=== PATIENT | male | born 1945 | race Two or more races ===

== ENCOUNTER 2020-10-14 07:34 | Inpatient (IN) | payer OTHER ==
[~2020-10-14] VITALS: Ht 172.7 cm; Wt 99.8 kg
[~2020-10-14 07:34] MED LIST: INSLANTI
[2020-10-14] MEDS ORDERED: SODIUM CHLORIDE 0.9% 1,000 ML IV ONE (08:15)
[2020-10-14 08:18] LABS: Basophils # (auto) 0.1 10 ^3/uL (0-0.2); Basophils % (auto) 0.6 % (0.0-2.0); Eosinophils # (auto) 0.4 10 ^3/uL (0-0.8); Eosinophils % (auto) 2.9 % (0.0-7.0); Hematocrit 29.7 % (41.0-53.0); Hemoglobin 9.7 g/dL (13.5-17.5); Lymphocytes # (auto) 1.6 10 ^3/uL (0.4-5.4); Lymphocytes % (auto) 12.5 % (10.0-50.0); Mean Corpuscular Hemoglobin 27.6 pg (28.0-32.0); Mean Corpuscular Hgb Conc. 32.6 g/dL (32.0-36.0); Mean Corpuscular Volume 84.9 fL (80.0-100.0); Monocytes # (auto) 0.8 10 ^3/uL (0-1.3); Monocytes % (auto) 6.5 % (0.0-12.0); Neutrophils # (auto) 9.6 10 ^3/uL (1.6-8.6); Neutrophils % (auto) 77.5 % (37.0-80.0); Red Cell Distribution Width 14.3 % (11.8-14.3); White Blood Cell 12.4 10^3/uL (4.4-10.8)
[2020-10-14 08:35] LABS: Albumin 2.8 g/dL (3.4-5.0); Calcium 7.6 mg/dL (8.5-10.1); Potassium 3.6 mmol/L (3.5-5.1)
[2020-10-14 08:39] LABS: BUN/Creatinine Ratio 13.7; Bilirubin, Total 0.4 mg/dL (0.2-1.0); Total Protein 6.6 g/dL (6.4-8.2)
[2020-10-14] MEDS ORDERED: ONDANSETRON HCL 4 MG/2 ML VIAL IV ONE (09:00)
[2020-10-14] MEDS ORDERED: NOREPINEPHRINE 8 MG/250ML KIT 250 ML IV SCH (09:00)
[2020-10-14] MEDS ORDERED: NOREPINEPHRINE 8 MG/250ML KIT 250 ML IV ONE ×2 (09:02→14:55)
[2020-10-14] MEDS ORDERED: SUCCINYLCHOLINE CHLORIDE 20 MG/ML 10ML VIAL IV ONE (11:00)
[2020-10-14] MEDS ORDERED: ETOMIDATE (2MG/ML) 20ML VIAL IV ONE (11:00)
[2020-10-14] MEDS ORDERED: ENOXAPARIN SOD 100 MG/1 ML SYRINGE SC ONE (11:00)
[2020-10-14] MEDS ORDERED: PROPOFOL 100 ML IV SCH (11:00)
[2020-10-14] MEDS ORDERED: PROPOFOL 100 ML IV ONE (11:06)
[2020-10-14] MEDS ORDERED: MIDAZOLAM DRIP 50 mg/50mL 50 ML IV ONE (11:06)
[2020-10-14] MEDS: MIDAZOLAM DRIP 50 mg/50mL 50 ML IV SCH ×2 (11:14→14:18)
[2020-10-14 11:15] VITALS: BP 62/39
[2020-10-14] MEDS ORDERED: PHENYLEPHRINE IV 250 ML IV ONE ×2 (11:39→15:36)
[2020-10-14] MEDS: PHENYLEPHRINE IV 250 ML IV SCH ×2 (11:48→14:19)
[2020-10-14 12:18] LABS: Urine Bacteria NONE SEEN /hpf (None Seen); Urine Blood TRACE /uL (Negative); Urine Hyaline Cast FEW /lpf (0 - 2); Urine Specific Gravity 1.015 (1.001-1.035); Urine WBC 1 /hpf (0 - 3)
[2020-10-14] MEDS ORDERED: NITROGLYCERIN 0.4 MG SL TAB SL PRN (12:30)
[2020-10-14] MEDS ORDERED: MORPHINE SULFATE INJECTION 2 MG/2 ML SYRG IV PRN (12:30)
[2020-10-14] MEDS ORDERED: DOPamine 1600MCG/ML D5W 250 ML IV SCH (12:30)
[2020-10-14] MEDS ORDERED: SODIUM BICARBONATE 8.4 % INJ 50ML VIAL IV ONE ×2 (12:30→15:28)
[2020-10-14] MEDS ORDERED: DOPamine 1600MCG/ML D5W 250 ML IV ONE ×2 (12:37→12:45)
[2020-10-14] MEDS ORDERED: BUMETANIDE 2.5mg/10ml (0.25 mg/ml) INJ IV ONE (13:00)
[2020-10-14 13:30] VITALS: BP 67/41
[2020-10-14 14:19] VITALS: BP 61/35
[2020-10-14] MEDS ORDERED: ATROPINE SULF 1 MG/10ml SYR ONE (14:36)
[2020-10-14] MEDS ORDERED: EPINEPHrine HCL 1 MG/10 ML SYRG ONE (14:36)
[2020-10-14] MEDS ORDERED: SODIUM CHL 0.9% 50 ML ONE (14:36)
[2020-10-14] MEDS ORDERED: ANGIOMAX 250 MG VIAL IV ONE (14:36)
[2020-10-14 14:50] LABS: Magnesium 2.5 mg/dL (1.6-2.6)
[2020-10-14] MEDS ORDERED: IODIXANOL 320MG/ML 100ML BTL IV ONE ×2 (15:03→15:46)
[2020-10-14] MEDS ORDERED: LIDOCAINE 2%HCL (LOCAL ANESTH.) INJ 20ML MDV ONE (15:03)
[2020-10-14] MEDS ORDERED: EPINEPHrine HCL 250 ML IV ONE (15:09)
[2020-10-14] MEDS ORDERED: SODIUM BICARBONATE 50ML VIAL 150 ML in D5W 5% 1,000 ML IV ONE (15:30)
[2020-10-14] MEDS ORDERED: HEPARIN SODIUM (PORCINE) 5000 UNITS/ML 1ML VIAL ONE (15:40)
[2020-10-14] MEDS ORDERED: VASOPRESSIN 20 UNIT/ML ONE (15:44)
[2020-10-14] MEDS ORDERED: VASOPRESSIN 50 UNITS in D5W 5% 247.5 ML IV SCH (16:00)
[2020-10-14] MEDS ORDERED: SODIUM BICARBONATE 8.4% INJ 50ML SYRINGE IV ONE (22:58)
[2020-10-14] MEDS ORDERED: EPINEPHrine HCL 1 MG/10 ML SYRG IV ONE (22:58)
[2020-10-14] MEDS ORDERED: ATROPINE SULF 1 MG/10ml SYR IV ONE (22:58)
[2020-10-15] MEDS ORDERED: ENOXAPARIN SOD 100 MG/1 ML SYRINGE SC SCH (10:00)
[2020-10-15] MEDS ORDERED: PANTOPRAZOLE 40 MG/10 ML VIAL INJ IV SCH (10:00)
== END 2020-10-14 16:02 | DRG 215 ==
LOC: EDBD 07:34 → ER 07:34 → EDUNIT# 07:34 → TELE 12:21
PROVIDERS: ADMIT Nurse Practitioner Acute Care; ATTEND Nurse Practitioner Acute Care
PROC: 05HB33Z Insertion of Infusion Device into Right Basilic Vein, Percutaneous Approach (ICD-10-PCS; principal; 2020-10-14)
PROC: B54MZZA Ultrasonography of Right Upper Extremity Veins, Guidance (ICD-10-PCS; 2020-10-14)
PROC: 4A023N7 Measurement of Cardiac Sampling and Pressure, Left Heart, Percutaneous Approach (ICD-10-PCS; 2020-10-14)
PROC: B2111ZZ Fluoroscopy of Multiple Coronary Arteries using Low Osmolar Contrast (ICD-10-PCS; 2020-10-14)
PROC: 5A12012 Performance of Cardiac Output, Single, Manual (ICD-10-PCS; 2020-10-14)
PROC: 5A1935Z Respiratory Ventilation, Less than 24 Consecutive Hours (ICD-10-PCS; 2020-10-14)
PROC: 0BH17EZ Insertion of Endotracheal Airway into Trachea, Via Natural or Artificial Opening (ICD-10-PCS; 2020-10-14)
PROC: 02HA3RZ Insertion of Short-term External Heart Assist System into Heart, Percutaneous Approach (ICD-10-PCS; 2020-10-14)
PROC: 5A0221D Assistance with Cardiac Output using Impeller Pump, Continuous (ICD-10-PCS; 2020-10-14)
PROC: 02PA3RZ Removal of Short-term External Heart Assist System from Heart, Percutaneous Approach (ICD-10-PCS; 2020-10-14)
DX: I21.4 Non-ST elevation (NSTEMI) myocardial infarction (principal); J96.01 Acute respiratory failure with hypoxia; E87.2 Acidosis; I13.0 Hypertensive heart and chronic kidney disease with heart failure and stage 1 through stage 4 chronic kidney disease, or unspecified chronic kidney disease; I50.20 Unspecified systolic (congestive) heart failure; N17.9 Acute kidney failure, unspecified; D63.8 Anemia in other chronic diseases classified elsewhere; E11.22 Type 2 diabetes mellitus with diabetic chronic kidney disease; E03.9 Hypothyroidism, unspecified; E11.65 Type 2 diabetes mellitus with hyperglycemia; E66.9 Obesity, unspecified; Z20.822 Contact with and (suspected) exposure to COVID-19; E78.5 Hyperlipidemia, unspecified; I46.9 Cardiac arrest, cause unspecified; Z79.4 Long term (current) use of insulin; Z68.33 Body mass index [BMI] 33.0-33.9, adult; N18.32 Chronic kidney disease, stage 3b; R57.0 Cardiogenic shock
CPT/HCPCS: 31500; 36415; 36556; 36600; 70450; 71045; 80053; 81001; 82805; 83036; 83615; 83735; 83880; 84443; 84484; 85025; 85379; 86141; 87040; 87070; 87077; 87186; 87205; 87426; 93005; 93306; 94002; 96365; 96366; 96367; 96372; 96375; 99152; 99153; 99291; C1751; C1887; G0378; J0171; J0330; J2250; J2405; J2704; J7060; Q9967